=== PATIENT | male | born 2005 | race Two or more races ===

== ENCOUNTER 2024-04-20 07:08 | Emergency (ER) | payer MEDICAID ==
[~2024-04-20] VITALS: Ht 172.7 cm; Wt 90.0 kg
[2024-04-20 07:10] VITALS: BP 110/74; PULSE 74; RESP 18; TEMP 98; O2SAT 100
[2024-04-20] MEDS ORDERED: FAMO20 PO (08:01)
[2024-04-20] MEDS: FAMOTIDINE 20 MG TABLET PO ONE (08:14)
[2024-04-20] MEDS: DiphenhydrAMINE HCL 25 MG CAPSULE PO ONE (08:14)
== END 2024-04-20 08:16 | disposition home or self-care (01) ==
LOC: EMS 07:10
DX: T78.40XA Allergy, unspecified, initial encounter (principal); F12.90 Cannabis use, unspecified, uncomplicated; X58.XXXA Exposure to other specified factors, initial encounter
CPT/HCPCS: 99283

== ENCOUNTER 2024-10-07 00:05 | Emergency (ER) | payer MEDICAID ==
[~2024-10-07] VITALS: Ht 180.3 cm; Wt 84.1 kg
[~2024-10-07 00:05] MED LIST: FAMO20 PO
[2024-10-07 00:13] VITALS: TEMP 98.2
[2024-10-07] MEDS ORDERED: D-ME-162 PO (00:16)
[2024-10-07 00:28] LABS: COVID AG,FIA SOURCE NASAL SWAB
[2024-10-07 00:42] LABS: INFLUENZA TYPE A NEGATIVE FOR TYPE A (NEGATIVE); INFLUENZA TYPE B NEGATIVE FOR TYPE B (NEGATIVE)
[2024-10-07 00:44] LABS: SARS-COV2 (COVID) ANTIGEN,FIA Negative (Negative)
[2024-10-07 01:02] VITALS: BP 138/65; PULSE 109; RESP 18; O2SAT 99
[2024-10-07] MEDS: ACETAMINOPHEN 325 MG TABLET PO ONE (01:47)
[2024-10-07] MEDS: CETIRIZINE HCL 10 MG TABLET PO ONE (01:48)
== END 2024-10-07 03:22 | disposition home or self-care (01) ==
LOC: EMS 00:32
DX: J06.9 Acute upper respiratory infection, unspecified (principal); B97.89 Other viral agents as the cause of diseases classified elsewhere; R05.9 Cough, unspecified; F12.90 Cannabis use, unspecified, uncomplicated; Z91.030 Bee allergy status; Z20.822 Contact with and (suspected) exposure to COVID-19
CPT/HCPCS: 87804; 99283